=== PATIENT | male | born 1995 | race Caucasian/White ===

== ENCOUNTER → 2017-08-12 | Outpatient (CLI) | payer OTHER | LOC: COL.RAD 12:56 | DX: F07.81 Postconcussional syndrome (principal) | CPT/HCPCS: A9585 ==

== ENCOUNTER 2021-07-27 10:18 | Emergency (ER) | payer OTHER ==
[~2021-07-27] VITALS: Ht 188 cm; Wt 102.3 kg
[2021-07-27 10:22] VITALS: TEMP 97.8
[2021-07-27] MEDS ORDERED: CEPHALEXIN500 M1 PO (10:43)
[2021-07-27 10:49] VITALS: BP 143/74; PULSE 104
== END 2021-07-27 10:59 | disposition home or self-care (01) ==
LOC: COL.ER 10:18
DX: S61.431A Puncture wound without foreign body of right hand, initial encounter (principal); Z23 Encounter for immunization; W45.0XXA Nail entering through skin, initial encounter